=== PATIENT | male | born 1965 ===

== ENCOUNTER 2025-05-04 06:15 | Day surgery (SDC) | payer OTHER, SELFPAY ==
[2025-05-04] VITALS (7 sets, daily range): BP systolic 98–120; BP diastolic 74–86; BMI 30.8
[2025-05-04 12:03] LABS: Glucose - Point of Care 91 mg/dl (70-99)
[2025-05-04] MEDS: NORMOSOL-R/PLASMALYTE-A 1000 IV (12:30)
[2025-05-04] MEDS: CELEBREX 200 MG PO (12:32)
[2025-05-04] MEDS: TYLENOL 650 MG PO (12:32)
[2025-05-04 18:50] LABS: Glucose - Point of Care 145 mg/dl (70-99)
[2025-05-04] MEDS: ROXICODONE 5 MG PO (20:35)
== END 2025-05-04 20:47 | disposition home or self-care (01) ==
LOC: SDS 06:15
PROVIDERS: ATTENDING PHYSICIAN Student in an Organized Health Care Education/Training Program; FAMILY PHYSICIAN Family Medicine
DX: M21.071 Valgus deformity, not elsewhere classified, right ankle (principal); M20.41 Other hammer toe(s) (acquired), right foot
CPT/HCPCS: 28300; 28285 ×4; 20680; 28304; 73630; 76000; 82962; C1713; C1776